=== PATIENT | female | born 1960 | race Hispanic/Latino ===

== ENCOUNTER → 2018-08-12 | Outpatient (CLI) | payer OTHER | END | disposition home or self-care (01) | LOC: RAH 15:42 | PROVIDERS: ATTEND Family Medicine | DX: Z13.6 Encounter for screening for cardiovascular disorders (principal) | CPT/HCPCS: 75571 ==

== ENCOUNTER 2022-07-20 22:48 | Emergency (ER) | payer BC, OTHER ==
[~2022-07-20] VITALS: Ht 144.8 cm; Wt 67.1 kg
[2022-07-20 22:53] VITALS: BP 138/75
[2022-07-20] MEDS ORDERED: PHEN-847 PO (23:09)
[2022-07-20] MEDS ORDERED: SULF1TAB42 PO (23:09)
[2022-07-20] MEDS ORDERED: PHENAZOPYRIDINE HCL 200 MG TABLET PO ONE (23:30)
[2022-07-20] MEDS ORDERED: CEFTRIAXONE 1G VIAL IM ONE (23:30)
== END 2022-07-20 23:50 | disposition home or self-care (01) ==
LOC: EDH 22:48
DX: N39.0 Urinary tract infection, site not specified (principal); E11.9 Type 2 diabetes mellitus without complications; Z79.899 Other long term (current) drug therapy
CPT/HCPCS: 99284; 96372; J0696